=== PATIENT | female | born 1955 | race Caucasian/White ===

== ENCOUNTER 2019-08-04 18:13 | Emergency (ER) | payer OTHER ==
[~2019-08-04] VITALS: Ht 160 cm; Wt 54.4 kg
[2019-08-04 18:13] VITALS: BP_SYST 143
--- NOTE | 2019-08-04 18:13 | NUR ---
BROUGHT BACK TO BED #8 AND TRIAGED. REPORT GIVEN TO JANETH
--- NOTE | 2019-08-04 18:35 | NUR ---
Pt came to ER with R hand lac after daughter's dog bit her hand. Pt AO4, calm and cooperative, appropriate, VSS.
--- NOTE | 2019-08-04 18:38 | NUR ---
ER at bedside examining patient.
[2019-08-04] MEDS ORDERED: DIPH-TET-PERTUS Vaccine 0.5 ML VIAL (ADACEL) I.M. ONE (18:45)
[2019-08-04] MEDS ORDERED: LIDOCAINE 1% 10 MG/ML, 20 ML MDV INJ ONE (18:45)
[2019-08-04] MEDS ORDERED: BACITRACIN 1 GM OINT TP ONE ×2 (18:58→19:00)
--- NOTE | 2019-08-04 19:08 | NUR ---
Received report from MICHAEL Mulligan.
--- NOTE | 2019-08-04 19:10 | NUR ---
Spoke with patient, Patient refused to report Animal Control. (Patient's daughter dog, it had been vaccinated.)
[2019-08-04 19:19] VITALS: BP_SYST 143
--- NOTE | 2019-08-04 19:19 | NUR ---
Patient given written and verbal discharge instructions and verbalizes understanding. ER MD discussed with patient the results and treatment provided. Patient in stable condition. ID arm band removed. Rx of Augmentin given. Patient educated on pain management and to follow up with PMD. Pain Scale 2/10. Opportunity for questions provided and answered. Medication side effect fact sheet provided.
== END 2019-08-04 19:19 | disposition home or self-care (01) ==
LOC: SED 18:13
DX: S61.411A Laceration without foreign body of right hand, initial encounter (principal); W54.0XXA Bitten by dog, initial encounter; Y93.89 Activity, other specified; Y92.89 Other specified places as the place of occurrence of the external cause; Y99.8 Other external cause status
CPT/HCPCS: 12002; 90471; 90715; 99283; J2001